=== PATIENT | female | born 1975 | race Caucasian/White ===

== ENCOUNTER 2019-06-04 03:05 | Inpatient (IN) ==
[2019-06-04 06:37] LABS: BASO# 0.02 X1000 (0.0-0.2); BASO% 0.2 % (0.0-0.8); EOS# 0.09 X1000 (0.0-0.7); EOS% 0.8 % (0.0-10.0); HEMATOCRIT 40.7 % (37.0-47.0); HEMOGLOBIN 13.3 g/dL (12.0-16.0); IMM GRAN# 0.03 X1000 (0.0-0.04); IMM GRAN% 0.3 % (0.0-0.5); LYMPH# 2.66 X1000 (1.2-3.4); LYMPH% 24.3 % (20.5-51.1); MCH 26.9 PG (27-31); MCHC 32.7 g/dL (33-37); MCV 82.4 FL (81-99); MONO# 0.94 X1000 (0.11-0.59); MONO% 8.6 % (1.7-9.3); MPV 9.3 FL (7.4-10.4); NEUT# 7.19 X1000 (1.4-6.5); NEUT% 65.8 % (42.2-75.2); PLT 284 X1000 (130-400); RBC 4.94 XMIL (4.2-5.4); RDW 13.9 % (11.5-14.5); WBC 10.93 X1000 (4.8-10.8)
[2019-06-04 06:47] LABS: INR 1.06
[2019-06-04 06:48] LABS: PTT 29.8 Seconds (22.3-41.8)
[2019-06-04 07:23] LABS: ACETAMINOPHEN < 1.2 ug/mL (10-30); AGAP 15; ALB/GLOB RATIO 1.3; ALBUMIN 4.1 g/dL (3.5-5.0); ALKALINE PHOSPHATASE 64 U/L (32-104); BUN 16 mg/dL (8-22); CALCIUM 9.3 mg/dL (8.8-10.2); CHLORIDE 100 mmol/L (98-107); COSMO 277; CREATININE 0.8 mg/dL (0.5-0.9); ESTIMATED GFR > 60; GLUCOSE 99 mg/dL (70-104); GOT 21 U/L (10-30); GPT 17 U/L (10-36); MAGNESIUM 2.2 mg/dL (1.5-2.7); POTASSIUM 3.6 mmol/L (3.5-5.1); SALICYLATES < 3.00 mg/dL (3-10); SODIUM 138 mmol/L (136-145); TCO2 23 mmol/L (25-35); TOTAL BILIRUBIN 0.64 mg/dL (0.20-1.00); TOTAL PROTEIN 7.2 g/dL (6.3-8.3)
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
[2019-06-04 12:11] LABS: URINE SOURCE CLEAN CATCH
[2019-06-04 12:15] LABS: BILIRUBIN URINE NEGATIVE (NEGATIVE); BLOOD URINE TRACE (NEGATIVE); COLOR ORANGE; GLUCOSE URINE NEGATIVE (NEGATIVE); KETONE URINE NEGATIVE (NEGATIVE); LEUKOCYTES URINE LARGE (NEGATIVE); NITRITE URINE POSITIVE (NEGATIVE); PROTEIN URINE TRACE mg/dL (NEGATIVE); SP GRAVITY URINE 1.014; TURBIDITY URINE HAZY (CLEAR); UR EPITHELIAL CELLS <10 /HPF (<10); URINE BACTERIA 1+ /HPF; URINE RBC <10 /HPF (<10); URINE WBC TNTC /HPF (<10); UROBILINOGEN URINE NORMAL (NORMAL)
[2019-06-04 12:43] LABS: UR AMPHETAMINES QUAL PRESUMPTIVE POSITIVE (NONE DETECT); UR BARBITUATES QUAL NONE DETECTED (NONE DETECT); UR BENZODIAZEPIN QUAL NONE DETECTED (NONE DETECT); UR CANNABINOIDS QUAL NONE DETECTED (NONE DETECT); UR COCAINE QUAL NONE DETECTED (NONE DETECT); UR METHADONE QUAL NONE DETECTED (NONE DETECT); UR OPIATES QUAL NONE DETECTED (NONE DETECT); UR OXYCODONE QUAL NONE DETECTED (NONE DETECT); UR PCP QUAL NONE DETECTED (NONE DETECT)
[2019-06-04] MEDS ORDERED: ROCEPHIN 1 GM in NS 50 ML IV ONE (16:18)
--- NOTE | 2019-06-04 16:27 | EKG Report ---
Test Performed on : 06/04/2019 4:27:44 PM Test Reason : drug overdose Blood Pressure : / mmHG Vent. Rate : 084 BPM Atrial Rate : 084 BPM P-R Int : 130 ms QRS Dur : 074 ms QT Int : 380 ms P-R-T Axes : -09 -18 007 degrees QTc Int : 449 ms Normal sinus rhythm. Moderate voltage criteria for LVH, may be normal variant Borderline ECG No previous ECGs available Confirmed by Jake BEE, Nathanael ([id number]) on 06/05/2019 8:20:31 AM
[2019-06-04] MEDS ORDERED: LEVAQUIN PO SCH (17:00)
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
--- NOTE | 2019-06-05 07:22 | EKG Report ---
Test Performed on : 06/05/2019 06:58:15 AM Test Reason : QT prolongation Blood Pressure : / mmHG Vent. Rate : 074 BPM Atrial Rate : 074 BPM P-R Int : 134 ms QRS Dur : 070 ms QT Int : 410 ms P-R-T Axes : 027 002 017 degrees QTc Int : 455 ms Normal sinus rhythm. Normal ECG When compared with ECG of 04-JUN-2019 16:27, (Unconfirmed) No significant change was found Confirmed by Jake BEE, Nathanael ([id number]) on 06/05/2019 8:21:21 AM
[2019-06-05] MEDS ORDERED: ROCEPHIN 1 GM in NS 50 ML IV SCH (09:00)
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
[2019-06-05 11:54] VITALS: BP 108/70
== END 2019-06-05 12:50 | disposition home or self-care (01) | DRG 918 ==
LOC: SUATTDRO 03:05 → DIRADM 03:05 → ICU 06:02
PROVIDERS: ATTEND Emergency Medicine